=== PATIENT | female | born 1965 | race Caucasian/White ===

== ENCOUNTER 2017-05-15 16:40 | Emergency (ER) | payer OTHER ==
[~2017-05-15] VITALS: Ht 167.6 cm; Wt 66.2 kg
[~2017-05-15 16:40] MED LIST: ACETAMINOPHEN-1 EAC1 PO; ALBUTEROL2.5 MG/0.1 INH; AMOXICILLIN 50500 M1 PO; APAP500 PO; ATIVAN1 MG PO; AUGMENTIN 875875 M1 PO; AURALGAN EAR DR14 ML OT; AZITHROMYCIN 2250 MG PO; CARAFATE1 GM/10 ML PO; CEPHALEXIN 500500 M3 PO; CIPROFLOXACIN500 M1 PO; CRUTCH1 EACH MC; DELSYM30 MG/5 M1 PO; FLEXERIL PO; HYDROCODON-ACE1 EAC7 PO; HYDROCODON-ACE1 EAC8 PO; HYDROCODONE-AP1 EAC6 PO; IBUPROFEN 800800 M1 PO; IBUPROFEN 800800 MG PO; NAPROSYN500 MG PO; NORCO 5-325 TA1 EACH PO; NORCO 7.5-3251 EACH PO; ONDANSETRON HCL4 M2 PO; PHENERGAN 25 MG25 MG PO; PREDNISONE 5 MG5 M1 PO; PROTONIX40 M1 PO; PROTONIX40 M2 PO; PROZAC 10 MG CA10 M1 PO; PROZAC 20 MG20 MG PO; TYLENOL325 MG PO; ZANTAC 7575 MG PO; ZOFRAN ODT4 MG PO; ZOFRAN ODT4 MG SUBLING; ZOFRAN4 MG PO
[2017-05-15] MEDS ORDERED: ONDANSETRON HCL4 M2 PO (17:48)
[2017-05-15] MEDS ORDERED: HYDROCODONE-AP1 EAC6 PO (17:48)
[2017-05-15] MEDS ORDERED: CIPROFLOXIN HC2.5 M1 OTIC (18:01)
[2017-05-15] MEDS ORDERED: AUGMENTIN 875-1 EACH PO (18:01)
[2017-05-15 18:07] VITALS: BP 107/71
== END 2017-05-15 18:08 | disposition home or self-care (01) ==
LOC: M.ERS 16:40
DX: R51 Headache (principal); H60.93 Unspecified otitis externa, bilateral; H66.93 Otitis media, unspecified, bilateral; F17.210 Nicotine dependence, cigarettes, uncomplicated; Z90.710 Acquired absence of both cervix and uterus; Z98.890 Other specified postprocedural states; Z88.8 Allergy status to other drugs, medicaments and biological substances

== ENCOUNTER 2018-01-08 12:00 | Emergency (ER) | payer OTHER ==
[~2018-01-08] VITALS: Ht 167.6 cm; Wt 67.6 kg
[~2018-01-08 12:00] MED LIST changes: +AUGMENTIN 875-1 EACH PO; +CIPROFLOXIN HC2.5 M1 OTIC
[2018-01-08] MEDS ORDERED: PROZAC10 MG PO (12:18)
[2018-01-08] MEDS ORDERED: ZANTAC 150MG T150 MG PO (12:18)
[2018-01-08 12:36] LABS: URINE BILIRUBIN NEGATIVE (Negative); URINE BLOOD 2+ (Negative); URINE CLARITY CLEAR; URINE COLOR YELLOW; URINE GLUCOSE-RANDOM NEGATIVE (Negative); URINE KETONES TRACE (Negative); URINE LEUKOCYTES-REFLEX NEGATIVE (Negative); URINE NITRITE-REFLEX NEGATIVE (Negative); URINE PROTEIN TRACE (Negative); URINE SPECIFIC GRAVITY 1.025 (1.005-1.030); URINE UROBILINOGEN 0.2 E.U./dl (0.2-1.0)
[2018-01-08 12:44] LABS: ABSOLUTE BASOPHILS 0.1 thou/uL (0.0-0.2); ABSOLUTE EOSINOPHILS 0.1 thou/uL (0.0-0.7); ABSOLUTE LYMPHOCYTES 2.7 thou/uL (0.8-5.3); ABSOLUTE NEUTROPHILS 5.2 thou/uL (1.6-8.1); BASOPHILS 1.2 %; EOSINOPHILS 1.4 %; HEMOGLOBIN 14.9 gm/dL (12.0-15.0); LYMPHOCYTES 29.3 %; MCH 33.7 pg (26.0-34.0); MCV 99.2 fL (80.0-100.0); MONOCYTES 11.4 %; MPV 7.9 fl. (7.2-11.1); NUCLEATED RBCS 0 /100WBC; PLATELET COUNT* 216 thou/uL (150-400); POLYS 56.7 %; RBC 4.43 mil/uL (4.20-5.00); RDW-CV 12.9 % (10.5-14.5); WBC 9.2 thou/uL (4.0-11.0)
[2018-01-08 12:48] LABS: HYALINE CASTS 0-3 Few /LPF (None Seen); MUCUS >6 Heavy strn/LPF (None Seen); SQUAMOUS >10 Many /LPF (0-3); URINE RBC 3-10 Few /HPF (0-2); URINE WBC-REFLEX 0-5 Rare /HPF (0-5)
[2018-01-08 12:49] LABS: BACTERIA-REFLEX 1-9 Few /HPF (None Seen); CRYSTALS None Seen /LPF (None Seen)
[2018-01-08 12:52] LABS: CALCIUM 9.6 mg/dL (8.5-10.1); CREATININE 0.8 mg/dL (0.6-1.3); POTASSIUM 3.5 mmol/L (3.5-5.1)
[2018-01-08 12:56] LABS: ALBUMIN 4.2 g/dL (3.4-5.0); TOTAL BILIRUBIN 0.5 mg/dL (<0.1-1.0); TOTAL PROTEIN 8.1 g/dL (6.4-8.2)
[2018-01-08] MEDS ORDERED: ONDANSETRON HCL4 M2 PO (13:53)
[2018-01-08] MEDS ORDERED: BENTYL 10 MG CA10 M1 PO (13:53)
[2018-01-08 14:37] VITALS: BP 139/79
== END 2018-01-08 14:39 | disposition home or self-care (01) ==
LOC: M.ERS 12:00
PROVIDERS: Nurse Practitioner Family
DX: K52.9 Noninfective gastroenteritis and colitis, unspecified (principal); F17.210 Nicotine dependence, cigarettes, uncomplicated; Z88.5 Allergy status to narcotic agent; Z88.8 Allergy status to other drugs, medicaments and biological substances; Z90.710 Acquired absence of both cervix and uterus; Z90.49 Acquired absence of other specified parts of digestive tract

== ENCOUNTER → 2020-01-26 | Outpatient (CLI) | payer OTHER ==
[~2020-01-26] MED LIST changes: +BENTYL 10 MG CA10 M1 PO; +PROZAC10 MG PO; +ZANTAC 150MG T150 MG PO
--- NOTE | 2020-01-26 16:57 | CARDNUC ---
[place] [address] CARDIAC NUCLEAR IMAGING REPORT Name: TERRY SHRESTHA HARITHA Room: [facility]#: [id number] Admission: 01/26/20 Attend Phys: Timothy Vogel, Discharge: Date of : 67 Date of Service: 01/26/20 1656 Report #: [id number] THIS REPORT FOR: cc: Roselia Almanzar Stefany RNP Liston, Michael J. MD [facility] ~ APPROVED REPORT Study performed: 01/26/2020 14:34:04 Exam: Nuclear Stress Test Indication: Dyspnea, Chest pain Patient Location: Out-Patient Stress Tech: [employer] Stress Nurse: Candida Navarro RN Ht: 5 ft 6 in Wt: 139 lbs BSA: 1.71 m2 BMI: 22.43 Medical History Medications: no cardiac meds Allergies: oxycodone Cardiac Risk Factors: Age, Current Smoker Exercise History: Indeterminate Stress Test Details Stress Test: Exercise stress converted to pharmacologic stress due to failure to obtain a diagnostic stress test. Reason for pharmacologic stress test: changed from exercise stress test due to inability to reach target heart rate. HR Resting HR: 78 bpm Max Heart Rate (APMHR): 167 bpm Max HR Achieved: 126 bpm Target HR (85% APMHR): 141 bpm % of APMHR: 75 Recovery HR: 88 bpm BP Resting BP: 126/44 mmHg Max BP: 128/91 mmHg ECG Resting ECG: Sinus Rhythm Stress ECG: [place] [address] CARDIAC NUCLEAR IMAGING REPORT Name: TERRY SHRESTHA Room: [facility]#: [id number] Admission: 01/26/20 Attend Phys: Timothy Vogel, Discharge: Date of : 67 Date of Service: 01/26/20 1656 Report #: [id number] Change: None Arrhythmia: None Recovery ECG: Sinus Rhythm Recovery ST Change: None Recovery Arrhythmia: None Clinical Reason for Termination: Completed protocol The patient tolerated walking Lexiscan protocol without significant cardiac symptoms. Nurse Comments pt atempted to walk on treadmill and was unable to reach target heaertrate Stress ECG Conclusion The baseline twelve-lead EKG shows sinus rhythm without significant ST segment or T wave abnormalities. EKGs obtained during and post walking Lexiscan protocol show sinus rhythm and sinus tachycardia with no significant ST segment or T wave changes when compared to baseline. There were no stress-induced arrhythmias. NM EXAM: Myocardial Perfusion REST/STRESS Resting Data Rest SPECT myocardial perfusion imaging was performed in supine position 30 minutes following the intravenous injection of 10.56 mCi of Tc-99m Sestamibi. Time of rest injection: 1255 The images were gated to evaluate regional wall motion and calculate left ventricular ejection fraction. Administration Route: IV Administration Site: Right AC Pharmacologic Stress Pharmacologic stress test was performed by injecting Regadenoson 0.4 mg IV push followed by the intravenous injection of 35.2 mCi of Tc-99m Sestamibi. Time of stress injection: 14:15 Administration Route: IV Administration Site: Right AC Heart Rate at time of stress injection: 126 bpm. Gated Stress SPECT was performed 45 minutes after stress injection. The images were gated to evaluate regional wall motion and calculate left ventricular [place] [address] CARDIAC NUCLEAR IMAGING REPORT Name: TERRY SHRESTHA Room: [facility]#: [id number] Admission: 01/26/20 Attend Phys: Timothy Vogel, Discharge: Date of : 67 Date of Service: 01/26/20 1656 Report #: [id number] Prone imaging was performed. Study Quality Study: Good Artifact: No artifact Study Data At rest, the left ventricular ejection fraction was 66%.. Post stress, the left ventricular ejection was 69%.. TID = 0.92. Perfusion Perfusion images obtained at rest and post stress show uniform uptake of the radioisotope throughout the myocardium. There were no defects to suggest infarct or ischemia. Wall Motion Normal left ventricular wall motion. Nuclear Conclusion ECG Findings: negative for ischemia Clinical Findings: negative for ischemia Nuclear Findings: negative for ischemia Exercise Capacity: not assessed Left Ventricular Function: normal Risk Study: low Myocardial perfusion images show no defect to suggest ischemia or infarct. Left ventricular systolic function is normal on gated studies. This is a low risk study. <Conclusion> The baseline twelve-lead EKG shows sinus rhythm without significant ST segment or T wave abnormalities. EKGs obtained during and post walking Lexiscan protocol show sinus rhythm and sinus tachycardia with no significant ST segment or T wave changes when compared to baseline. There were no stress-induced arrhythmias. <ELECTRONICALLY SIGNED> By: Timothy Vogel MD, FACC 01/26/20 [id number] Timothy Vogel MD, FACC /INF
== END ==
LOC: M.NUC 01-19 11:00
PROVIDERS: ATTEND Internal Medicine Cardiovascular Disease
DX: R07.1 Chest pain on breathing (principal); R06.09 Other forms of dyspnea; F17.200 Nicotine dependence, unspecified, uncomplicated